=== PATIENT | male | born 1985 | race Hispanic/Latino ===

== ENCOUNTER 2018-07-05 21:48 | Emergency (ER) | payer OTHER ==
[2018-07-05] MEDS ORDERED: SULFAMETHOX-TMP DS 800/160 TAB ONE (23:41)
[2018-07-05] MEDS ORDERED: LIDOCAINE 2%-EPI 1:200,000 20 ML VIAL IJ ONE (23:42)
[2018-07-05] MEDS ORDERED: HYDROCODONE/ACETAMINOPHEN 10/325 MG TAB ONE (23:42)
== END 2018-07-06 00:37 | disposition home or self-care (01) ==
LOC: EDH 21:48
DX: L02.31 Cutaneous abscess of buttock (principal)
CPT/HCPCS: 10060; 99283; J3490